=== PATIENT | female | born 1990 ===

== ENCOUNTER 2021-10-30 23:41 | Inpatient (IN) | payer OTHER ==
[~2021-10-30] VITALS: Ht 157.5 cm; Wt 59.4 kg
--- NOTE | 2021-10-30 23:54 | NUR ---
SE RECIBE PACIENTE ALERTA Y ORIENTADA X 3 REFIERE TENER DIARREAS DESDE EL VIERNES, DOLOR ABDOMINAL, NAUSEAS VOMITOS DESDE HOY. SE MONITOREAN S/V Y SE UBICA EN OBSERACION, PACIENTE REFIERE TUVO COVID HACE 3 SEMANAS.
--- NOTE | 2021-10-31 00:25 | NUR ---
PACIENTE EVALAUDA POR EL DR. LOAIZA QUIEN ORDENA [place] MEDICO. SE ORIENTA APCIENTE SOBRE TX REFIERE ENTEDNER Y RN MARTEL EJEUCTA ORDENES MEDICAS. PENDIENTE RESULTADOS DE LABS.
--- NOTE | 2021-10-31 02:11 | NUR ---
SE [facility] PARA REALIZA ESTUDIO.
--- NOTE | 2021-10-31 07:06 | NUR ---
PTE ALERTA Y ORIENTADO POR ELTON ESFERAS CON BUEN PATRON RESPIRATORIO. TIENE CANALIZACION PATENTE DEYSI DE EDEMA Y ERITEMA. ESTA EN YUE BAJA, BARANDAS ELEVADAS Y TIMBRE ACCESIBLE. PENDIENTE CT PO Y CONSULTA CON
== END 2021-11-06 13:56 | disposition home or self-care (01) | DRG 392 ==
LOC: ER 23:41 → SEC-K 10-31 16:39 → SURH 10-31 16:39
PROVIDERS: ADMIT Internal Medicine; ATTEND Internal Medicine
PROC: BW40ZZZ Ultrasonography of Abdomen (ICD-10-PCS; principal; 2021-10-31)
PROC: BW21YZZ Computerized Tomography (CT Scan) of Abdomen and Pelvis using Other Contrast (ICD-10-PCS; 2021-10-31)
PROC: BF37ZZZ Magnetic Resonance Imaging (MRI) of Pancreas (ICD-10-PCS; 2021-10-31)
DX: R19.7 Diarrhea, unspecified (principal); R74.01 Elevation of levels of liver transaminase levels; R11.2 Nausea with vomiting, unspecified; R10.11 Right upper quadrant pain; R50.9 Fever, unspecified; Z20.822 Contact with and (suspected) exposure to COVID-19